=== PATIENT | male | born 1980 | race Caucasian/White ===

== ENCOUNTER → 2018-06-09 | Outpatient (CLI) | payer OTHER, MEDICAID ==
[~2018-06-09] MED LIST: DEXL30CA2 PO
== END ==
LOC: STAR 14:47
PROVIDERS: ATTEND Orthopaedic Surgery
DX: Z02.9 Encounter for administrative examinations, unspecified (principal)

== ENCOUNTER 2018-06-16 11:07 | Day surgery (SDC) | payer OTHER, MEDICAID ==
[~2018-06-16] VITALS: Ht 172.7 cm; Wt 67.5 kg
[~2018-06-16 11:07] MED LIST changes: +BUPIVACAINE/PF-EPI 0.5% 1:200K ONE; +EPINEPHRINE 1 MG/ML, 1ML ONE; +LIDOCAINE-MPF 1%, 5ML ONE
[2018-06-16] MEDS ORDERED: LACTATED RINGERS 1,000 ML IV SCH (11:28)
[2018-06-16] MEDS ORDERED: ACETAMINOPHEN 500 MG TABLET PO ONE ×2 (11:30→12:00)
[2018-06-16] MEDS ORDERED: GABAPENTIN 300 MG CAPSULE PO ONE ×2 (11:30→12:00)
[2018-06-16 11:33] VITALS: BP 135/90
[2018-06-16] MEDS ORDERED: FENTANYL PF 100 MCG/2ML ONE ×3 (11:51→13:33)
[2018-06-16] MEDS ORDERED: MIDAZOLAM 1 MG/ML, 2ML ONE (11:51)
[2018-06-16] MEDS ORDERED: LIDOCAINE-MPF 1%, 2ML INFIL ONE (12:00)
[2018-06-16] MEDS ORDERED: DEXLANSOPRAZOLE 30 MG HOMEMEDPO PRN (12:30)
[2018-06-16] MEDS ORDERED: DEXAMETHASONE 4 MG/ML, 1ML ONE (12:50)
[2018-06-16] MEDS ORDERED: KETOROLAC 30 MG/1 ML ONE (12:50)
[2018-06-16] MEDS ORDERED: ONDANSETRON 2MG/ML, 2ML ONE (12:50)
[2018-06-16] MEDS ORDERED: PROPOFOL 10 MG/ML, 20ML ONE (12:50)
[2018-06-16] MEDS ORDERED: CEFAZOLIN 1,000 MG ONE (12:50)
[2018-06-16] MEDS ORDERED: ALBUTEROL/IPRATROPIUM 2.5MG/0.5MG, 3 ML NPPB PRN (13:00)
[2018-06-16] MEDS ORDERED: LABETALOL 5MG/ML, 20ML IV PRN (13:00)
[2018-06-16] MEDS ORDERED: PROMETHAZINE 25 MG/ML, 1ML IV PRN (13:00)
[2018-06-16] MEDS ORDERED: EPHEDRINE 50 MG/ML, 1ML IM PRN (13:00)
[2018-06-16] MEDS ORDERED: MEPERIDINE/PF 25MG/0.5ML IVPush PRN (13:00)
[2018-06-16] MEDS ORDERED: MIDAZOLAM 1 MG/ML, 2ML IV PRN (13:00)
[2018-06-16] MEDS ORDERED: FENTANYL PF 100 MCG/2ML IV PRN (13:00)
[2018-06-16] MEDS ORDERED: SCOPOLAMINE PATCH, 1.5MG PATCH.TD72 TD PRN (13:00)
[2018-06-16] MEDS ORDERED: HYDROmorphone 1 MG/ML, 1ML IV PRN (13:00)
[2018-06-16] MEDS ORDERED: DIPHENHYDRAMINE 50 MG/ML, 1ML ONE (13:33)
[2018-06-16] MEDS ORDERED: OXYcodone 5 MG/5 ML ORAL.SOL UDC ONE (13:34)
[2018-06-16] MEDS: OXYcodone 5 MG/5 ML ORAL.SOL UDC PO PRN ×2 (13:43→14:42)
[2018-06-16] MEDS ORDERED: DIPHENHYDRAMINE 50 MG/ML, 1ML IVPush PRN (14:00)
[2018-06-16] MEDS ORDERED: DEXLANSOPRAZOLE MC SCH (14:30)
== END 2018-06-16 15:30 ==
LOC: OUT 11:07
PROVIDERS: ATTEND Orthopaedic Surgery
DX: M79.5 Residual foreign body in soft tissue (principal); Z72.89 Other problems related to lifestyle
CPT/HCPCS: 23333; 73020; 76000; J1200; J3010; J7120; J0171; J0690; J1100; J1885; J2250; J2405; J2704

== ENCOUNTER 2020-01-30 14:21 | Outpatient (CLI) | payer OTHER, MEDICAID ==
[~2020-01-30 14:21] MED LIST changes: -BUPIVACAINE/PF-EPI 0.5% 1:200K ONE; -EPINEPHRINE 1 MG/ML, 1ML ONE; -LIDOCAINE-MPF 1%, 5ML ONE
[2020-01-30 14:42] LABS: BASOPHILS # (AUTO) 0.05 x10^3/uL (0-0.1); BASOPHILS % (AUTO) 1 % (0-1); EOSINOPHILS # (AUTO) 0.08 x10^3/uL (0-0.4); EOSINOPHILS % (AUTO) 1 % (1-7); LYMPHOCYTES # (AUTO) 2.04 x10^3/uL (1-3.4); LYMPHOCYTES % (AUTO) 31 % (22-44); MD NO; MEAN CORPUSCULAR HEMOGLOBIN 33.9 pg (27.5-34.5); MEAN CORPUSCULAR HGB CONC 34.3 g/dL (33.2-36.2); MEAN CORPUSCULAR VOLUME 98.8 fL (81-97); MEAN PLATELET VOLUME 8.1 fL (7.4-10.4); MONOCYTES % (AUTO) 12 % (2-9); NEUTROPHILS # (AUTO) 3.58 x10^3/uL (1.8-6.8); NEUTROPHILS % (AUTO) 55 % (42-75); PLATELET COUNT 368 x10^3/uL (130-400); RED BLOOD COUNT 4.67 x10^6/uL (4.38-5.82)
[2020-01-30 14:49] LABS: ALANINE AMINOTRANSFERASE 62 U/L (12-78); ALBUMIN 4.2 g/dL (3.4-5.0); ANION GAP 6 mmol/L (5-15); CALCIUM 9.8 mg/dL (8.5-10.1); CHLORIDE 110 mmol/L (98-107); CREATININE 0.69 mg/dL (0.7-1.3); GAMMA GLUTAMYL TRANSPEPTIDASE 368 U/L (15-85)
[2020-01-30 14:51] LABS: ALKALINE PHOSPHATASE 93 U/L (45-117); TOTAL PROTEIN 7.7 g/dL (6.4-8.2)
== END 2020-01-30 23:59 | disposition home or self-care (01) ==
LOC: LAB 14:21
PROVIDERS: ATTEND Family Medicine
DX: F10.239 Alcohol dependence with withdrawal, unspecified (principal)
CPT/HCPCS: 36415; 80053; 82977; 85025